=== PATIENT | female | born 1965 | race Two or more races ===

== ENCOUNTER 2024-07-06 04:05 | Emergency (ER) | payer MEDICAID, SELFPAY ==
[2024-07-06] VITALS (8 sets, daily range): BP systolic 109–143; BP diastolic 41–77; PULSE 60–80; RESP 14–18; TEMP 36.3–36.8; O2SAT 97–100; BMI 24.2
--- NOTE | 2024-07-06 05:39 | PD.EDRME ---
Rapid Medical Screening Exam RME Arrival date/time: 07/06/24 04:05 Chief Complaint: Syncope / Near Syncope Time Seen by Provider: 07/06/24 04:18 Vital signs: Vital Signs Temperature 98.2 F 07/06/24 04:09 Pulse Rate 60 07/06/24 04:09 Respiratory Rate 15 07/06/24 04:09 Blood Pressure 143/74 H 07/06/24 04:09 Pulse Oximetry (%) 100 07/06/24 04:09 Oxygen Delivery Method Oxy Mask 07/06/24 04:09 Oxygen Flow Rate 4 07/06/24 04:09 Vital signs reviewed by provider: Yes RME Narrative: 59-year-old female presents to the Emergency Department with complaints of nausea that began around 6 PM. She experienced an urgent need to go to the bathroom and felt like she was going to vomit. She also thought her blood sugar might be low. She became increasingly dizzy and subsequently collapsed. She was found on the floor. The patient denies any seizure activity, neck pain, or head trauma from the fall. MD Attestation MD Attestation Scribe Attestation: I, Stefanie Feliciano, am scribing for and in the presence of Dr. Wiggins. Provider Notation: Although this document has been carefully reviewed, there may still be some phonetic and other typographical errors. These errors are purely grammatical due to imperfections in the software program and should not be construed in any way to compromise the substance of the patient's medical care during this visit.
[2024-07-06 05:53] LABS: Basophils # (Auto) 0.1 Thou/mm3 (0.0-0.2); Basophils % (Auto) 1 % (0-2.5); Eosinophils # (Auto) 0.1 Thou/mm3 (0.0-0.5); Eosinophils % (Auto) 1 % (0-10); Hematocrit 37.4 % (36.0-46.0); Hemoglobin 12.4 g/dL (12.0-16.0); Immature Granulocytes % (Auto) 0 % (0-0); Immature Granulocytes Auto 0.02 Thou/mm3 (0.00-0.00); Lymphocytes # (Auto) 2.3 Thou/mm3 (1.0-4.8); Lymphocytes % (Auto) 34 % (10-50); Mean Corpuscular HGB Conc 33.2 g/dl (31.0-37.0); Mean Corpuscular Hemoglobin 28.4 pg (25.0-35.0); Mean Corpuscular Volume 86 fL (80-100); Monocytes # (Auto) 0.5 Thou/mm3 (0.0-0.8); Monocytes % (Auto) 7 % (0-12); Neutrophils % (Auto) 57 % (37-80); Nucleated Red Blood Cell % 0 /100 WBC (0); Platelet Count 276 Thou/mm3 (140-440); RDW Standard Deviation 39.7 fL (36.4-46.3); Red Blood Count 4.36 Miln/mm3 (4.00-5.20)
--- NOTE | 2024-07-06 07:14 | EKG_ITS ---
[facility] Test Date: 2024-07-06 Pat Name: LEONELA RICE Department: Room: - Gender: Female [employer] In[employer]: : [id number] Requested By: Jazmin Lynch Order Number: [id number] Reading MD: Jazmin Lynch Measurements Intervals [place] Rate: 63 P: 49 MS: 200 QRS: 23 QRSD: 69 T: 40 QT: 393 QTc: 403 Interpretive Statements SINUS RHYTHM LOW QRS VOLTAGE IN PRECORDIAL LEADS [QRS DEFLECTION < 1.0 mV IN CHEST LEADS] SEPTAL MYOCARDIAL INFARCTION , PROBABLY OLD [40+ ms Q WAVE IN V1/V2] No previous ECG available for comparison /store/S0/[id number]/[id number].pdf
[2024-07-06] MEDS: ONDANSETRON INJ 2 MG/ML INJ 2 ML 4 MG IV (07:35)
--- NOTE | 2024-07-06 07:49 | XR_ITS ---
Examination: AP lateral chest 2 views TECHNIQUE: Sitting AP lateral chest 2 views Exam date and time: July 06, 2024 0836 hours INDICATIONS: Onset chest pain today. FINDINGS: Normal heart size No pneumonia or pulmonary edema Moderate thoracic spondylosis IMPRESSION: No pneumonia or pulmonary edema
[2024-07-06 09:06] LABS: Alanine Aminotransferase 15 U/L (10-49); Albumin, Serum 4.6 gm/dL (3.4-4.8); Albumin/Globulin Ratio 1.5 (1.2-2.2); Alkaline Phosphatase 99 U/L (46-116); Anion Gap 8 (7-16); Aspartate Amino Transferase 17 U/L (0-34); BUN/Creatinine Ratio 19 Ratio (12-20); Bilirubin,Total 0.6 mg/dL (0.3-1.2); Blood Urea Nitrogen 15 mg/dL (9-23); Calcium 9.1 mg/dL (8.3-10.6); Calcium (Corrected) 9.1 mg/dL (8.5-10.1); Carbon Dioxide 28.8 mMol/L (20.0-31.0); Chloride 102 mMol/L (98-107); Creatinine (Component) 0.8 mg/dL (0.6-1.3); Glucose 156 mg/dL (74-106); Osmolality,Calculated 281 (275-295); Potassium 3.9 mMol/L (3.4-5.1); Sodium 139 mMol/L (136-145); Total Protein 7.6 gm/dL (5.7-8.2); Troponin I < 0.002 ng/mL (0.0-0.045); eGFR > 60 See Note
[2024-07-06] MEDS: MG HYD/AL HYD/SIME (Maalox Reg) SUSP 30 ML UDC PO (09:09)
[2024-07-06] MEDS: LIDOCAINE VISCOUS 2% 15 ML UDC PO (09:09)
[2024-07-06 11:04] LABS: Troponin I < 0.002 ng/mL (0.0-0.045)
--- NOTE | 2024-07-06 12:10 | EDNOTE_ITS ---
ED Syncope RME/HPI General Chief Complaint: Syncope / Near Syncope Stated Complaint: SYNCOPAL EPISODE Time Seen by Provider: 07/06/24 04:18 Arrival date/time: 07/06/24 04:05 RME / HPI RME / HPI narrative: 59-year-old female presents to the Emergency Department with complaints of nausea that began around 6 PM. She experienced an urgent need to go to the bathroom and felt like she was going to vomit. She also thought her blood sugar might be low. She became increasingly dizzy and subsequently collapsed. She was found on the floor. The patient denies any seizure activity, neck pain, or head trauma from the fall. DR. FITCH MAIN ED EVALUATION 59 year old female with history of diabetes presents to the ED for evaluation of syncopal episode today. 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 Evidently was witnessed by other staff and an MRU was called overhead. While in the ED patient reported ~1 hour after the start of her shift at 6pm last night she began to feel nauseated that was accompanied by a sense of impending doom. States she induced vomiting 3 times with no relief. Otherwise stated she was feeling at her usual state of health yesterday. Denies fevers, chills, sweats, diarrhea, abdominal pain, or urinary symptoms. Related Data Allergies Allergy/AdvReac Type Severity Reaction Status Date / Time aspirin Allergy Intermediate Rash Verified 07/06/24 04:15 Review of Systems Review of Systems Narrative Review of Systems: Gen: No fever, no chills, no weight loss, +sense of impending doom EYES: No discharge, no visual changes, no pain HEENT: No ear pain, no congestion, no sore throat PULM: no shortness of breath, no cough, no congestion CV: +syncope. No chest pain, no dyspnea on exertion, no palpitations GI: + nausea,+ vomiting, no diarrhea, no pain, no constipation : No frequency, no urgency,? no dysuria Musc/skel: No joint pain, no back pain Skin: No rash, no ecchymosis, no lesions Psyc: No hallucinations, no depression Heme/Lymph: No easy bleeding or bruising tendencies Neuro: No weakness, no headache Past Medical History Past Medical History CARDIAC: Negative Congestive Heart Failure RESPIRATORY: Negative Chronic Obstructive Pulmonary Disease (COPD) GENITOURINARY: Negative Renal Disease ENDOCRINE: Positive Diabetes Mellitus Type 2; Negative Diabetes Mellitus Type 1 Social History SMOKING STATUS: Never smoker ED Exam Narrative Physical exam: GENERAL APPEARANCE: AxOx4, no obvious distress, nontoxic appearing HEENT: NC, AT. MMM. EOMI, clear conjunctiva, oropharynx clear. NECK: Supple without lymphadenopathy. No stiffness or restricted ROM. HEART: Normal rate and regular rhythm, normal S1/S1, no m/r/g LUNGS: CTAB, moving air well. No crackles or wheezes are heard. ABDOMEN: Soft, nontender, nondistended with good bowel sounds heard. BACK: No midline C/T/L spine pain or deformity, No CVAT, no obvious deformity. EXTREMITIES: Without cyanosis, clubbing or edema. MUSCULOSKELETAL: FROM of all major joints, no chest tenderness NEUROLOGICAL: Grossly nonfocal. Alert and oriented, moving all 4 extremities. CN not formally tested but appear grossly intact. Skin: Warm and dry without any rash. Course Quality Measures none Orders Category Date Time Status EKG (ED ONLY) *Do not use* NOW Care 07/06/24 07:14 Completed EKG (ED Only) Stat Exams 07/06/24 07:14 Draft XR chest 2V Stat Exams 07/06/24 07:49 Completed CBC Stat Lab 07/06/24 04:57 Completed CMP [Comprehensive Metabolic Panel] Stat Lab 07/06/24 04:57 Completed Troponin I Stat Lab 07/06/24 04:57 Completed Troponin I Stat Lab 07/06/24 10:12 Completed Lidocaine 2% Viscous [Xylocaine 2% Viscous] Med 07/06/24 07:48 Discontinued 15 ml PO X1 ONE Ondansetron Inj [Zofran Inj] Med 07/06/24 07:26 Discontinued 4 mg IV X1 ONE mg Hyd/Al Hyd/Logan Susp [Maalox Susp] Med 07/06/24 07:48 Discontinued 30 ml PO X1 ONE Reevaluation(s) Reevaluation #1: On reassessment patient reports feeling improved. Reports history of similar symptoms on/off for several years and has had multiple tests performed including stress test and angiogram that are negative. Also states she has had an EGD and colonoscopy that showed gastritis. 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 Will follow up with her PCP there. We reviewed all the results, analysis, and treatment plans. Patient is amenable to discharge. Strict return precautions were outlined. Patient was discharged in stable condition. Time: 12:35 Vital Signs Vital signs: Vital Signs Temperature 98.2 F 07/06/24 04:09 Pulse Rate 60 07/06/24 04:09 Respiratory Rate 15 07/06/24 04:09 Blood Pressure 143/74 H 07/06/24 04:09 Pulse Oximetry (%) 100 07/06/24 04:09 Oxygen Delivery Method Oxy Mask 07/06/24 04:09 Oxygen Flow Rate 4 07/06/24 04:09 Pulse ox is 100% on room air which is adequate. Syncope MDM Narrative MDM Narrative:: Yoli Rowland am scribing for and in the presence of Dr. Fitch. Patient data External records reviewed:: [facility] previous records (Per EMR, no previous visits for review ) Clinical information provided by:: patient and other (specify) (RN) Social determinants that could affect healthcare access:: none Patient has the following chronic illnesses:: DM How is presenting disease/condition affected by chronic disease/condition?: exacerbated by Evaluation data The following diagnostics were reviewed and interpreted by me:: lab results, radiology exam(s) and EKG tracing(s) (Sinus rhythm, rate 63, normal axis, normal intervals, no acute ST or T-wave changes. ) Lab and/or radiology exams considered but not ordered:: None Interpretation Summary: Ordering Physician: Cristian Fitch MD Date of Service: 07/06/24 Procedure(s): XR chest 2V Accession Number(s): [id number] cc: Cristian Fitch MD; Nura Marrero MD; NO PRIMARY/FAMILY,PHYSICIAN~ Examination: AP lateral chest 2 views TECHNIQUE: Sitting AP lateral chest 2 views Exam date and time: July 06, 2024 0836 hours INDICATIONS: Onset chest pain today. FINDINGS: Normal heart size No pneumonia or pulmonary edema Moderate thoracic spondylosis IMPRESSION: No pneumonia or pulmonary edema Dictated By:Nura Marrero MD Signed By:<Electronically signed by Nura Marrero MD in OV>07/06/24 0900 Medications / Prescriptions Medications or Prescriptions considered but not ordered:: None Medication administrations:: Medication Administration History Discontinued Medications Al Hydrox/Mg Hydrox/Simethicone (Mg Hyd/Al Hyd/Logan (Maalox Reg) Susp 30 Ml Udc) 30 ml PO X1 ONE Stop: 07/06/24 07:49 Last Admin: 07/06/24 09:09 Dose: 30 ml Documented By: ANN Lidocaine HCl (Lidocaine Viscous 2% 15 Ml Udc) 15 ml PO X1 ONE Stop: 07/06/24 07:49 Last Admin: 07/06/24 09:09 Dose: 15 ml Documented By: GM Ondansetron HCl (Ondansetron Inj 2 Mg/Ml Inj 2 Ml) 4 mg IV X1 ONE; Protocol Stop: 07/06/24 07:27 Last Admin: 07/06/24 07:35 Dose: 4 mg Documented By: ANN See above Consultations Consultation(s) initiated? (list below): No Diagnosis Syncope Differential Diagnosis: syncope due to orthostatic hypotension, vasovagal syncope and dehydration Most likely diagnosis given after review of the tests above:: Vasovagal syncope, chronic epigastric pain Admission Indicated Admission indicated?: not indicated Admission Request Was there a request for admission?: No Disposition Plan Disposition Plan: Discharge Discharge Attestation Discharge Attestation: The patient and all family members were given an opportunity to ask questions and understood the discharge instructions. Discharge instructions specifically effects, indications for sooner follow up or return to the emergency department, and the expected course of current diagnosis. Patient condition: Stable Discharge Plan Plan Patient Disposition: HOME (Self Care) Prescriptions/Referrals Referrals: No Primary/Family,Physician [Primary Care Provider] - In 1 week Problem List Clinical Impression: Vasovagal syncope, Chronic epigastric pain Patient/Caregiver Discharge Instructions Education Materials: ED Fainting, Uncertain Cause, ED Epigastric Pain (Uncertain Cause) Additional Instructions: Follow-up with your primary care doctor in 1 week for recheck. You can return to the emergency department sooner if symptoms worsen or if you notice any new, concerning issues. Print Language: Thai Stand Alone Forms: Katelyn Award Info., Patient Portal Info Letter
== END 2024-07-06 14:08 | disposition home or self-care (01) ==
PROVIDERS: Emergency Medicine; Emergency Provider Emergency Medicine
DX: R55 Syncope and collapse (principal); R10.13 Epigastric pain
CPT/HCPCS: 36415; 71046; 80053; 84484; 85025; 93005; 96374; 99284; J2405; J3490; A9270

== ENCOUNTER 2024-07-27 07:24 | Emergency (ER) | payer MEDICAID, SELFPAY ==
[2024-07-27 07:50] VITALS: BP 110/72; PULSE 70; RESP 18; TEMP 36.8; O2SAT 98; BMI 28.3
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
== END 2024-07-27 09:54 | disposition home or self-care (01) ==
PROVIDERS: Emergency Provider Emergency Medicine
DX: S13.4XXA Sprain of ligaments of cervical spine, initial encounter (principal); V89.2XXA Person injured in unspecified motor-vehicle accident, traffic, initial encounter; M25.511 Pain in right shoulder; M79.603 Pain in arm, unspecified
CPT/HCPCS: 70450; 71045; 72125; 73030; 73060; 99284